=== PATIENT | female | born 1960 | race Caucasian/White ===

== ENCOUNTER → 2016-12-07 | Outpatient (CLI) | payer OTHER ==
--- NOTE | 2016-12-07 17:08 | MAMMOGRAPHY REPORT ---
THIS REPORT HAS BEEN AMENDED. AMENDMENT: 12/27/2016 Yennifer Oseguera M.D. Prior outside mammograms from [place], [place] dated 04/21/2000, 09/19/2001, 11/24/2005 and 05/2007 became available for review. The 5.8 mm focal asymmetry in the upper outer posterior right breast, and 2-3 subcentimeter nodular asymmetries in the upper outer left breast are increasingly co nspicuous comparing to the prior outside exams. Although these asymmetries could represent cysts, a dditional spot compression tomosynthesis views and possibly ultrasound are recommended. Amended BI-RADS: ACR BI-RADS Category 0: Incomplete Evaluation: Need Additional Imaging Evaluation letter sent: [facility] 0 BILATERAL DIGITAL SCREENING MAMMOGRAM TOMOSYNTHESIS WITH CAD: 12/07/2016 CLINICAL HISTORY: Routine screening. Patient has no complaints. TECHNIQUE: Breast tomosynthesis in addition to standard 2D mammography was performed. Current study was also evaluated with a Computer Aided Detection (CAD) system. COMPARISON: No prior exams were available for comparison. BREAST COMPOSITION: There are scattered areas of fibroglandular density in both breasts. FINDINGS: There is a 5.8 mm focal asymmetry in the upper outer posterior right breast. There are 2 -3 subcentimeter nodular asymmetries in the upper outer middle one third of the left breast. Althou gh these findings could be benign representing normal glandular tissue and/or benign cysts, comparis on to prior outside mammograms would be useful to assess stability. If the outside exams are not ob tained in a timely manner, additional spot compression tomosynthesis views and possible ultrasound a re recommended. There are benign coarse calcifications in the breasts. No focal area of architectural distortion or suspicious microcalcifications. IMPRESSION: ACR BI-RADS CATEGORY 0: INCOMPLETE EVALUATION: NEED ADDITIONAL IMAGING EVALUATION The asymmetries in each upper outer quadrant comparison to prior outside mammograms to assess stabi lity. If those mammograms are unable to be obtained, additional spot compression tomosynthesis view s and possibly ultrasound are recommended in the breasts. The patient will be called to schedule an appointment. Approximately 10% of breast cancers are not detected with mammography. A negative mammographic repor t should not delay biopsy if a clinically suggestive mass is present. Yennifer Oseguera M.D. ay/:12/07/2016 16:37:41 Conditioner Tender: Aldair Moncada RT(R)(M), [facility] letter sent: Addl Imaging 0 BI-RADS Code: ACR BI-RADS Category 0: Incomplete Evaluation: Need Additional Imaging Evaluation
== END | disposition home or self-care (01) ==
LOC: C.MAMM 13:28
PROVIDERS: ATTEND Nurse Practitioner Family
DX: Z12.31 Encounter for screening mammogram for malignant neoplasm of breast (principal); N64.89 Other specified disorders of breast

== ENCOUNTER → 2017-01-02 | Outpatient (CLI) | payer OTHER ==
--- NOTE | 2017-01-03 07:57 | MAMMOGRAPHY REPORT ---
BILATERAL DIGITAL DIAGNOSTIC MAMMOGRAM TOMOSYNTHESIS WITH CAD AND TARGETED BILATERAL ULTRASOUND: 12/13 CLINICAL HISTORY: 56 year old woman called back from screening mammography for bilateral asymmetries , within the upper outer quadrants. TECHNIQUE: Spot compression CC and MLO tomosynthesis images of each upper outer quadrant were obtai lucita. COMPARISON: Comparison is made to exams dated: 12/07/2016 mammogram - [facility], 03/23/2007 mammogram, 11/24/2005 mammogram, 09/19/2001 mammogram, 05/23/2000 mammogram, and 04/21/2000 [facility]. BREAST COMPOSITION: There are scattered areas of fibroglandular density in both breasts. FINDINGS: In the right upper outer quadrant, there is persistence of a 5.8 mm asymmetry in the late ral, posterior breast on the CC view. It does not have clearly defined borders on the tomosynthesis images and has the appearance of normal fibroglandular tissue. Incidentally seen is an oval circum scribed 4 mm mass with central lucency which could represent an intramammary lymph node. There are a few benign-appearing microcalcifications. There is a 3 mm circumscribed oval mass in the upper ou ter middle one third of the left breast. Another reniform shaped 4.6 mm circumscribed mass is seen in the the upper outer far posterior left breast. No focal area of architectural distortion, irregu lar or spicular dated mass or suspicious microcalcifications are identified in the left upper outer quadrant. Further evaluation with ultrasound was performed. Targeted ultrasound was performed throughout each superior and lateral breast. No suspicious solid or cystic mass is identified bilaterally. Additional sonographic evaluation was performed in the ar ea of and discomfort in the 6:00 left breast. In this area, sonographically normal tissue is seen w ithout a suspicious mass. A few morphologically normal lymph nodes are seen in the right axillary t ail and axilla. IMPRESSION: ACR-BI-RADS CATEGORY 3: PROBABLY BENIGN, TARGETED ULTRASOUND ACR-BI-RADS CATEGORY 3: LA OBABLY BENIGN There is no definite mammographic or targeted sonographic evidence of malignancy bilaterally. Bilat eral nodular asymmetries most likely represent intramammary lymph nodes and/or normal fibroglandular tissue. Given that these findings are slightly more conspicuous compared to prior outside screen f ilm mammograms dating back to 2005, a six-month follow-up bilateral diagnostic mammogram and possibl e ultrasound is recommended to ensure stability. These results and recommendations were discussed with the patient at the time of the exam. Approximately 10% of breast cancers are not detected with mammography. A negative mammographic repor t should not delay biopsy if a clinically suggestive mass is present. Yennifer Oseguera M.D. ay/:01/02/2017 15:44:40 Ceramic Coater Machine: Susi ROWLAND(Dank)([employer]), [facility] letter sent: Follow Up Recommended 3 BI-RADS Code: ACR-BI-RADS Category 3: Probably Benign Ultrasound BI-RADS: ACR-BI-RADS Category 3: P robably Benign
== END | disposition home or self-care (01) ==
LOC: C.MAMM 13:00
PROVIDERS: ATTEND Nurse Practitioner Family
DX: R92.2 Inconclusive mammogram (principal)

== ENCOUNTER → 2017-12-13 | Outpatient (CLI) | payer OTHER | END | disposition home or self-care (01) | LOC: C.PAPS 17:11 | PROVIDERS: ATTEND Family Medicine | DX: Z00.01 Encounter for general adult medical examination with abnormal findings (principal) ==

== ENCOUNTER → 2018-01-03 | Outpatient (CLI) | payer OTHER ==
--- NOTE | 2018-01-03 14:23 | MAMMOGRAPHY REPORT ---
BILATERAL DIGITAL DIAGNOSTIC MAMMOGRAM TOMOSYNTHESIS WITH CAD: 01/03/2018 CLINICAL HISTORY: 57-year-old woman presents for close follow-up in both breasts for nodular asymmetr ies most numerous in each upper outer quadrant, which were increased comparing to the patient's avail able prior 2006, 2005 and previous mammograms. TECHNIQUE: Bilateral breasttomosynthesis in addition to standard 2D mammography was performed. Curre nt study was also evaluated with a Computer Aided Detection (CAD) system. COMPARISON: Comparison is made to exams dated: 01/02/2017 ultrasound, 01/02/2017 mammogram, 12/07/2016 mammogram - [facility], 03/23/2007 mammogram, 11/24/2005 mammogram, and 09/19/2001 mamm ogram - [facility] [place]. BREAST COMPOSITION: There are scattered areas of fibroglandular density in both breasts. FINDINGS: The previously observed focal asymmetries and nodular asymmetries most numerous in each upp er outer middle and posterior breast are stable comparing back to the screening mammogram performed , most likely benign masses including fibroadenomas, lymph nodes and normal fiber glandular t issue. No evidence of a new suspicious spiculated or irregular mass, none of the asymmetries appear increasingly prominent on the 2D or tomosynthesis mammogram images. No developing asymmetries, disto rtion or suspicious calcifications are seen bilaterally. Given that all of these nodular asymmetries are increasingly conspicuous comparing to the patient's remote mammograms, another 12 month follow-u p bilateral diagnostic tomosynthesis mammogram and possible ultrasound is recommended to ensure at le ast 2 years of stability to confirm benignity. IMPRESSION: ACR-BI-RADS CATEGORY 3: PROBABLY BENIGN Stable mammographic appearance of the breasts including nodular asymmetries and focal asymmetries in each upper outer quadrant. Another 12 month follow-up bilateral diagnostic tomosynthesis mammogram a nd possible ultrasound is recommended to ensure at least 2 years of stability to confirm benignity. These results and recommendations were discussed with the patient at the time of the exam. Approximately 10% of breast cancers are not detected with mammography. A negative mammographic report should not delay biopsy if a clinically suggestive mass is present. Yennifer Oseguera M.D. ay/:01/03/2018 09:17:26 Production Sound Mixer: Lissett ROWLAND(R)([employer]), [facility] letter sent: Follow Up Recommended 3 BI-RADS Code: ACR-BI-RADS Category 3: Probably Benign
== END | disposition home or self-care (01) ==
LOC: C.MAMM 08:53
PROVIDERS: ATTEND Family Medicine
DX: N64.9 Disorder of breast, unspecified (principal)